=== PATIENT | female | born 1980 | race Caucasian/White ===

== ENCOUNTER 2024-07-24 16:10 | Emergency (ER) | payer BC ==
[2024-07-24] MEDS ORDERED: Ketorolac Tromethamine 30 MG (1 mL) VIAL ONE (17:52)
[2024-07-24] MEDS ORDERED: Lidocaine 1% PF 5 ML VIAL ONE (17:52)
[2024-07-24] MEDS ORDERED: Bacitracin 1 PK ONE (17:52)
== END 2024-07-24 20:01 | disposition home or self-care (01) ==
LOC: ERS 16:10
DX: S01.551A Open bite of lip, initial encounter (principal); S01.511A Laceration without foreign body of lip, initial encounter; W54.0XXA Bitten by dog, initial encounter
CPT/HCPCS: 12013; 96372; J1885